=== PATIENT | female | born 1960 | race Caucasian/White ===

== ENCOUNTER 2019-07-20 02:02 | Inpatient (IN) | payer BC ==
[~2019-07-20] VITALS: Ht 5.1 cm; Wt 89.8 kg
[2019-07-20] VITALS (14 sets, daily range): BP systolic 97–1136; BP diastolic 47–97
[~2019-07-20 02:02] MED LIST: DEPAKOTE ER500 MG PO; DEPAKOTE500 MG PO; METFORMIN HCL500 MG PO; SPIRIVA18 MCG INH; VENTOLIN HFA 1818 GM INH; VITAMIN B-1100 M1 PO; XANAX 0.25 MG0.25 MG PO
[2019-07-20] MEDS ORDERED: JARDIANCE10 MG PO (02:13)
[2019-07-20] MEDS ORDERED: NOVOLOG100 UNIT/1 SUBQ (02:14)
[2019-07-20] MEDS ORDERED: LANTUSSOLASTAR SUBQ (02:14)
[2019-07-20 02:19] LABS: ABSOLUTE NEUTROPHILS 12.1 thou/uL (1.4-8.2); BASOPHILS 0.7 % (0.0-2.0); EOSINOPHILS 1.8 % (0.0-3.0); HEMATOCRIT 31.7 % (37.0-47.0); HEMOGLOBIN 10.3 gm/dL (12.0-15.0); LYMPHOCYTES 22.8 % (24.0-44.0); MCH 26.3 pg (26.0-34.0); MCHC 32.4 g/dL (28.0-37.0); MCV 81.1 fL (80.0-100.0); MONOCYTES 6.4 % (1.0-8.0); PLATELET COUNT 300 thou/uL (150-400); POLYS 68.3 % (36.0-66.0); RBC 3.91 mil/uL (4.20-5.00); RDW 18.2 % (10.5-14.5); WBC 17.8 thou/uL (4.0-11.0)
[2019-07-20 02:31] LABS: ANION GAP 7 mmol/L (7-16); BUN 42 mg/dL (7-18); CALCIUM 8.8 mg/dL (8.5-10.1); CHLORIDE 99 mmol/L (98-107); CO2 31 mmol/L (21-32); CREATININE 1.5 mg/dL (0.6-1.0); GLUCOSE 178 mg/dL (74-106); POTASSIUM 3.5 mmol/L (3.5-5.1); SODIUM 137 mmol/L (136-145)
[2019-07-20 02:33] LABS: APTT 24.8 Seconds (24.5-32.8); PROTIME 9.8 Seconds (9.3-11.4)
[2019-07-20 02:41] LABS: ALBUMIN 3.5 g/dL (3.4-5.0); MAGNESIUM 1.8 mg/dL (1.8-2.4); SGOT 12 U/L (15-37); SGPT 21 U/L (30-65); TOTAL BILIRUBIN 0.1 mg/dL (<0.1-1.0); TROPONIN-I <0.06 ng/mL (<0.06)
[2019-07-20 03:59] LABS: CHOLESTEROL 211 mg/dL (<200); HDL CHOLESTEROL 40 mg/dL (>40); TC:HDL 5.3 Ratio (Not establshd); TRIGLYCERIDE 541 mg/dL (<150); VLDL 108 mg/dL (<40)
[2019-07-20 04:13] LABS: SERUM ASSESSMENT Clear
--- NOTE | 2019-07-20 05:33 | NUR ---
PT ARRIVED FROM ER AT [facility] 0350 FROM 2N. VSS. PT A&0X4, SISTER IN ROOM, ADMISSION ASSESSMENTS DONE, CARE PLAN IMPLEMENTED. PT STATED THAT HER CHEST PAIN IS NOW A 5 OR 6 OVER 10. IT INTESIFIES WHEN SHE DEEEP BREATHS. PT IS ALSO ANXIOUS, XANAX GIVEN AND MORPHINE. PT IS STABLE, SR ON THE MONITOR. WILL CONTINUE TO MONITOR PER POC.
--- NOTE | 2019-07-20 08:56 | EKG ---
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 : 1960 Requested By: Alfa Wang Order Number: [id number] MD: Aureliano Rojas Measurements Intervals [place] Rate: 90 P: 66 [place]: 122 QRS: -30 QRSD: 98 T: 63 QT: 387 QTc: 474 Interpretive Statements Sinus rhythm No significant abnormality Compared to ECG 07/03/2016 13:48:55 Left-axis deviation now present Electronically Signed On 07-20-2019 8:56:01 IMPLEMENTATION PROJECT MANAGER by Aureliano Rojas [email or web address] <ELECTRONICALLY SIGNED> By: Aureliano Rojas MD, [facility] 07/20/19 0856 5 5 Aureliano Rojas MD, [facility] /EPI
--- NOTE | 2019-07-20 10:06 | 2DMMODE ---
[facility] [address] [place] [address] 2 D/M-MODE ECHOCARDIOGRAM Name: GRACIELA PRADO Room #: 209-P ADM IN M.R.#: [id number] Admission: 07/20/19 Attend Phys: Keith Bates Discharge: Date of : 60 Report #: [id number] THIS REPORT FOR: //name// APPROVED REPORT Study performed: 07/20/2019 09:24:26 EXAM: Comprehensive 2D, Doppler, and color-flow Echocardiogram Patient Location: Echo lab Room #: 209 Status: routine BSA: 1.81 HR: 92 bpm BP: 136/64 mmHg Rhythm: NSR Other Information Study Quality: Good Indications COPD Diabetes Dyspnea Chest Pain Hypertension/HDD 2D Dimensions RVDd: 41.46 mm IVSd: 11.55 (7-11mm) LVOT Diam: 18.74 (18-24mm) LVDd: 49.32 mm PWd: 11.52 (7-11mm) Ascending Ao: 32.08 (22-36mm) LVDs: 32.25 (25-40mm) Aortic Root: 31.59 mm IVC: 16.00 mm Volumes Left Atrial Volume (Systole) Single Plane 4CH: 62.32 mL Single Plane 2CH: 40.19 mL LA ESV Index: 31.00 mL/m2 Aortic Valve AoV Peak Karlo.: 1.82 m/s AO Peak Gr.: 13.31 mmHg LVOT Max P.23 mmHg LVOT Max V: 1.25 m/s BASIL Vmax: 1.[address] [facility] [address] [address] 2 D/M-MODE ECHOCARDIOGRAM Name: GRACIELA PRADO Room #: 209-P [facility] IN [facility].#: [id number] Admission: 07/20/19 Attend Phys: Keith Bates Discharge: Date of : 60 Report #: [id number] Mitral Valve E/A Ratio: 1.2 MV Decel. Time: 141.87 ms MV E Max Karlo.: 1.20 m/s MV A Karlo.: 0.99 m/s MV PHT: 41.14 ms IVRT: 96.89 ms Pulmonary Valve PV Peak Karlo.: 1.40 m/s PV Peak Gr.: 7.82 mmHg Pulmonary Vein P Vein S: 0.68 m/s P Vein A: 0.27 m/s P Vein D: 0.48 m/s P Vein A Dur.: 96.9 msec P Vein S/D Ratio: 1.42 Tricuspid Valve TR Peak Karlo.: 3.49 m/s TR Peak Gr.: 48.65 mmHg PA Pressure: 53.00 mmHg Left Ventricle The left ventricle is normal size. There is normal LV segmental wall motion. Mild concentric left ventricular hypertrophy. The left ventricular systolic function is normal. The left ventricular ejection fraction is within the normal range. LVEF is 60-65%. Grade II - pseudonormal filling dynamics. Right Ventricle The right ventricle is normal size. The right ventricular systolic function is normal. Atria The left atrium size is normal. Right atrium is dilated. Aortic Valve The aortic valve is normal in structure. Trace aortic regurgitation. There is no aortic valvular stenosis. Mitral Valve The mitral valve is normal in structure. There is no mitral valve regurgitation noted. No evidence of mitral valve stenosis. Tricuspid Valve The tricuspid valve is normal in structure. There is mild tricuspid regurgitation. Estimated PAP 53 mmHg. There is moderate pulmonary [facility] [address] [place] [address] 2 D/M-MODE ECHOCARDIOGRAM Name: GRACIELA PRADO Room #: 209-P [facility] IN [facility].#: [id number] Admission: 07/20/19 Attend Phys: Keith Bates Discharge: Date of : 60 Report #: [id number] hypertension. Pulmonic Valve The pulmonary valve is normal in structure. Trace pulmonic regurgitation. Great Vessels The aortic root is normal in size. IVC is normal in size and collapses >50% with inspiration. Pericardium There is no pericardial effusion. <Conclusion> The left ventricle is normal size. Mild concentric left ventricular hypertrophy. The left ventricular systolic function is normal. Grade II - pseudonormal filling dynamics. The right ventricle is normal size. The left atrium size is normal. Right atrium is dilated. The aortic valve is normal in structure. There is no mitral valve regurgitation noted. There is mild tricuspid regurgitation. Estimated PAP 53 mmHg. There is moderate pulmonary hypertension. <ELECTRONICALLY SIGNED> By: Faisal Hammer MD 07/20/19 1005 1005 1005 Faisal Hammer MD /INF
[2019-07-20 12:13] LABS: URINE BILIRUBIN NEGATIVE (Negative); URINE BLOOD 1+ (Negative); URINE CLARITY CLOUDY; URINE COLOR YELLOW; URINE GLUCOSE-RANDOM* 3+ (Negative); URINE KETONES NEGATIVE (Negative); URINE LEUKOCYTES-REFLEX 2+ (Negative); URINE NITRITE-REFLEX POSITIVE (Negative); URINE PROTEIN (DIPSTICK) TRACE (Negative); URINE UROBILINOGEN 0.2 E.U./dl (0.2-1.0)
[2019-07-20 12:22] LABS: CASTS None Seen /LPF (None Seen); CRYSTALS None Seen /LPF (None Seen); SQUAMOUS >10 Many /LPF (0-3); URINE WBC-REFLEX >25 Many /HPF (0-5)
[2019-07-20 12:23] LABS: BACTERIA-REFLEX >30 Many /HPF (None Seen)
[2019-07-20 12:24] LABS: URINE RBC 0-2 Rare /HPF (0-2)
[2019-07-20 16:18] LABS: BE(vivo) 1.6 mmol/L (-2 to +3); HCO3 26.5 mmol/L (22.0-26.0); PO2 78.3 mmHg (80.0-100.0); pH 7.408 (7.360-7.450); sO2 95.6 % (92.0-98.0)
--- NOTE | 2019-07-20 17:31 | NUR ---
PT CARE ASSUMED APPROX 0700. ASSESSMENTS CHARTED. DENIES PAIN AND SOA. VSS. PT WAS STEADY WHEN UP PRIOR TO CATH. PT IS UNSTEADY AT THIS TIME. APPEARS VERY DROWSY. FALL PRECAUTIONS INITIATED. PT AGREEABLE. NO POST CATH ISSUES. RIGHT GROIN POST CATH SITE C/D/I. PT CAN SISTER GIVEN CLINICAL UPDATES POST CATH. BOTH DENY QUESTIONS AND CONCERNS REGARDING POC. PT TOLERATING POC. ABGs COLLECTED. NO CRITICALS REPORTED. DR CALLEJAS ORDERED PT TO BE ON BIPAP BUT NO SETTINGS WERE GIVEN. WILL SPEAK TO RT AND CLARIFY IF NEEDED. NO DISTRESS NOTED.
[2019-07-21 00:11] VITALS: BP 172/79
[2019-07-21 01:26] VITALS: BP 150/65
[2019-07-21 04:32] VITALS: BP 140/73
--- NOTE | 2019-07-21 05:17 | NUR ---
PT RESTING WELL. HAD NEED FOR ANTI ANXIETY MEDS X2 DURING SHIFT. PT DID NOT TOLERATE WEARING CPAP FOR THE WHOLE NIGHT. CONTINUES WITH MAINTENANCE IVF AND TOLERATING.
[2019-07-21 05:32] LABS: HEMATOCRIT 26.7 % (37.0-47.0); HEMOGLOBIN 8.5 gm/dL (12.0-15.0); MCH 25.9 pg (26.0-34.0); MCHC 31.7 g/dL (28.0-37.0); MCV 81.6 fL (80.0-100.0); RBC 3.27 mil/uL (4.20-5.00); RDW 18.6 % (10.5-14.5); WBC 12.2 thou/uL (4.0-11.0)
[2019-07-21 05:59] LABS: ANION GAP 7 mmol/L (7-16); BUN 22 mg/dL (7-18); CALCIUM 8.8 mg/dL (8.5-10.1); CHLORIDE 104 mmol/L (98-107); CO2 26 mmol/L (21-32); CREATININE 0.9 mg/dL (0.6-1.0); GLUCOSE 94 mg/dL (74-106); POTASSIUM 3.6 mmol/L (3.5-5.1); SODIUM 137 mmol/L (136-145); TROPONIN-I <0.06 ng/mL (<0.06)
[2019-07-21 07:50] VITALS: BP 110/52
--- NOTE | 2019-07-21 08:28 | CATHLAB ---
[address] [place] [address] INVASIVE PROCEDURE REPORT Name: GRACIELA PRADO Room #: 209-P ADM IN M.R.#: [id number] Admission: 07/20/19 Attend Phys: Keith Bates Discharge: Date of : 60 Report #: [id number] THIS REPORT FOR: //name// APPROVED REPORT Study performed: 07/20/2019 11:59:37 Patient Details The patient is a 59 year-old female Event Personnel Faisal Hammer Electric Motor Tester, Maco Ding Monitor, Jonny Schwartz RTR Monitor, Jenna Fierro RN, Dalila Castro RN RN, Marly Valdez RTR Scrub, Alona Wolf RTR Scrub Procedures Performed Art Access - R femoral artery* Left Heart Cath w/or w/o Coronaries [id number] [facility] Hemostasis with Manual pressure Indication Dyspnea, Unstable angina , Chest pain Risk Factors Obesity, HypercholesterolemiaPhysical Activity, Hypertension, Diabetes Procedure Narrative The Right Groin^ was infiltrated with 1% Lidocaine subcutaneous anesthesia. A PINNACLE 4FR Sheath #[id number] sheath was inserted into the RFA^. Coronary angiography was performed using coronary diagnostic catheters. The right coronary system was accessed and visualized with a JR 4 catheter. The left coronary system was accessed and visualized with a JL 4 catheter. Left ventricular/Aortic Valve gradient assessed via catheter pullback. Hemostasis was obtained with manual pressure following sheath removal without any complications. The patient tolerated the procedure well and there were no complications associated with the procedure. There was no hematoma. Fluoro Time: 6.30 minutes Dose: DAP 6419.00 cGycm2 1715 mGy Contrast Type and Amount: Visipaque 95 ml Coronary Angiography The patient's coronary anatomy is right dominant. [facility] [address] [place] [address] INVASIVE PROCEDURE REPORT Name: GRACIELA PRADO Room #: 209-P [facility] IN .R.#: [id number] Admission: 07/20/19 Attend Phys: Keith Bates Discharge: Date of : 60 Report #: [id number] Diagnostic Cath Left Main This is a large caliber vessel, with mild disease at the ostium. LAD This is a moderate size caliber vessel, traversing the anterior wall and terminating at the apex. There is a borderline stenosis in the proximal segment, 60-70%. Diagonal 1 This is a small to moderate size caliber vessel, with mild disease at the ostium. Diagonal 2 This is a small to moderate size caliber vessel, patent with no flow-limiting lesions. Circumflex There is mild disease in the proximal segment. Supplies one moderate size OM vessel. OM1 This is a moderate size caliber vessel, patent with no flow-limiting lesions. Right Coronary This is a moderate size caliber vessel, dominant. There is mild disease in the proximal segment, 20%. R PDA This is a intermediate sized vessel, patent with no flow-limiting lesions. RPLV This is a intermediate sized vessel, patent with no flow-limiting lesions. Left Ventriculography Left Ventriculography was not performed. Ejection Fraction was >55% based off patient's Echocardiogram. An LVEDP was measured and there is no gradient across the outflow tract. Hemodynamics The aortic pressure is 132/71 mmHg with a mean of 63 mmHg. The left ventricular pressure is 139/18 mmHg with a mean of mmHg. The left ventricular end diastolic pressure is 25 mmHg. Conclusion 1. There is a borderline stenosis in the proximal LAD. Recommend medical therapy. 2. There is mild disease in the left circumflex and RCA. 3. Normal LV systolic function. 4. Recommend aggressive risk factor management. <ELECTRONICALLY SIGNED> By: Faisal Hammer MD 07/21/19826 6 6 Faisal Hammer MD /INF
[2019-07-21] MEDS ORDERED: LIPITOR40 MG PO (08:50)
[2019-07-21] MEDS ORDERED: ASPIR 8181 MG PO (08:50)
[2019-07-21] MEDS ORDERED: METOPROLOL SUCC50 MG PO (08:50)
[2019-07-21] MEDS ORDERED: NOVOLOG100 UNIT/1 SUBQ (10:32)
[2019-07-21] MEDS ORDERED: LANTUS SUBQ (10:32)
[2019-07-21] MEDS ORDERED: KEFLEX500 M1 PO (10:33)
[2019-07-21 11:00] VITALS: BP 121/62
[2019-07-21 14:00] LABS: HEMATOCRIT 27.9 % (37.0-47.0); HEMOGLOBIN 8.8 gm/dL (12.0-15.0)
--- NOTE | 2019-07-21 15:20 | NUR ---
Nutrition: pt admit with CP and seen for high risk screen for weight loss/poor intake. Pt with hx of colon CA and reports lost 20# "a while back" around time of dx. No recent loss. 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 No questions/needs voiced for RD. Pt to D/C today.
[2019-07-21 15:57] VITALS: BP 121/62
--- NOTE | 2019-07-21 16:57 | NUR ---
ASSUMMED PT CARE AT APPROXIMATELY 0700. PT A&O X4. ASSESSMENT CHARTED. FALL PRECAUTIONS IN PLACE. PT DENIES HAVING CHEST PAIN. PT DENIES HAVING SOB. PT DENIES HAVING ACUTE PAIN. PT DISCHARGING BACK HOME C SELF CARE. PT RECEIVED DISCHARGE EDUCATION. PT STATED UNDERSTANING AND DENIED HAVING FURTHER QUESTIONS. IV DC. TELE DC. PT R GROIN C/D/I. NO HEMATOMA. VITAL SIGNS STABLE. BLOOD SUGARS STABLE. PT AMBULATES STEADY/INDEPENDENT. PT RECEIVING MEDICAL TRANSPORT TO TRANSPORT OFF UNIT. PT COMFORTABLE IN BED. PT DENIES HAVING FURTHER CONCERNS. AWAITING PT'S FAMILY TO ARRIVE.
== END 2019-07-21 17:49 | disposition home or self-care (01) | DRG 287 ==
LOC: ER 02:02 → EROBS 03:04 → 2N 03:04
PROVIDERS: Emergency Medicine; Nurse Practitioner Family; Pediatrics; ADMIT Hospitalist
PROC: 5A09357 Assistance with Respiratory Ventilation, Less than 24 Consecutive Hours, Continuous Positive Airway Pressure (ICD-10-PCS; principal; 2019-07-21)
PROC: 4A023N7 Measurement of Cardiac Sampling and Pressure, Left Heart, Percutaneous Approach (ICD-10-PCS; principal; 2019-07-21)
PROC: B211YZZ Fluoroscopy of Multiple Coronary Arteries using Other Contrast (ICD-10-PCS; principal; 2019-07-21)
DX: I25.110 Atherosclerotic heart disease of native coronary artery with unstable angina pectoris (principal); N17.9 Acute kidney failure, unspecified; N39.0 Urinary tract infection, site not specified; J44.9 Chronic obstructive pulmonary disease, unspecified; F32.9 Major depressive disorder, single episode, unspecified; G40.909 Epilepsy, unspecified, not intractable, without status epilepticus; D64.9 Anemia, unspecified; D72.829 Elevated white blood cell count, unspecified; F41.9 Anxiety disorder, unspecified; B96.20 Unspecified Escherichia coli [E. coli] as the cause of diseases classified elsewhere; K21.9 Gastro-esophageal reflux disease without esophagitis; E87.6 Hypokalemia; D64.89 Other specified anemias; N18.9 Chronic kidney disease, unspecified; E11.22 Type 2 diabetes mellitus with diabetic chronic kidney disease; I12.9 Hypertensive chronic kidney disease with stage 1 through stage 4 chronic kidney disease, or unspecified chronic kidney disease; F98.8 Other specified behavioral and emotional disorders with onset usually occurring in childhood and adolescence; G47.33 Obstructive sleep apnea (adult) (pediatric); Z87.891 Personal history of nicotine dependence; Z93.3 Colostomy status; Z85.038 Personal history of other malignant neoplasm of large intestine; Z79.82 Long term (current) use of aspirin; Z79.899 Other long term (current) drug therapy; Z82.49 Family history of ischemic heart disease and other diseases of the circulatory system; Z23 Encounter for immunization
CPT/HCPCS: 10081